=== PATIENT | male | born 1955 | race Two or more races ===

== ENCOUNTER 2020-07-25 16:12 | Emergency (ER) | payer SELFPAY ==
[2020-07-25 16:54] LABS: ABSOLUTE EOSINOPHILS # (AUTO) 0.5 10^3/uL (0.0-0.6); ABSOLUTE LYMPHOCYTES (AUTO) 1.5 10^3/uL (0.5-4.7); ABSOLUTE MONOCYTES (AUTO) 0.8 10^3/uL (0.1-1.4); ABSOLUTE NEUT (AUTO) 6.4 10^3/uL (1.7-8.2); BASOPHILS % (AUTO) 0.5 % (0-2); EOSINOPHILS % (AUTO) 5.1 % (0-6); HEMATOCRIT 33.3 % (37.9-51.0); HEMOGLOBIN 11.3 g/dL (13.5-17.0); LYMPHOCYTES % (AUTO) 16.3 % (13-45); MEAN CORPUSCULAR HEMOGLOBIN 32.5 pg (27.0-33.4); MEAN CORPUSCULAR VOLUME 96 fl (80-97); MONOCYTES % (AUTO) 8.5 % (3-13); PLATELET COUNT 372 10^3/uL (150-450); RED BLOOD COUNT 3.48 10^6/uL (4.35-5.55); RED CELL DISTRIBUTION WIDTH 14.3 % (11.5-14.0); SEGMENTED NEUTROPHILS % (AUTO) 69.6 % (42-78); TOTAL CELLS COUNTED % (AUTO) 100 %; WHITE BLOOD COUNT 9.1 10^3/uL (4.0-10.5)
[2020-07-25 17:18] LABS: ALBUMIN 4.5 g/dL (3.5-5.0); ALKALINE PHOSPHATASE 64 U/L (38-126); ANION GAP 15 (5-19); ASPARTATE AMINO TRANSFERASE 15 U/L (17-59); BILIRUBIN,DIRECT 0.6 mg/dL (0.0-0.4); BILIRUBIN,TOTAL 0.7 mg/dL (0.2-1.3); BLOOD UREA NITROGEN 38 mg/dL (7-20); CALCIUM 9.6 mg/dL (8.4-10.2); CARBON DIOXIDE 31 mmol/L (22-30); CHLORIDE 96 mmol/L (98-107); GLUCOSE 124 mg/dL (75-110); POTASSIUM 4.7 mmol/L (3.6-5.0); TOTAL PROTEIN 7.3 g/dL (6.3-8.2)
[2020-07-25 17:21] LABS: ACETAMINOPHEN < 10 ug/mL (10-30); ALCOHOL < 10 mg/dL (NONE DETECTED); SALICYLATE < 1.0 mg/dL (2.0-20.0)
[2020-07-25 18:36] LABS: URINE AMPHETAMINES SCREEN NEGATIVE; URINE BARBITURATES SCREEN NEGATIVE; URINE BENZODIAZEPINES SCREEN NEGATIVE; URINE COCAINE SCREEN NEGATIVE; URINE MARIJUANA (THC) SCREEN NEGATIVE; URINE METHADONE SCREEN NEGATIVE; URINE PHENCYCLIDINE SCREEN NEGATIVE
[2020-07-25] MEDS ORDERED: CLONIDINE HCL 0.1 MG TABLET PO ONE ×2 (18:53→18:58)
[2020-07-25] MEDS ORDERED: DIVALPROEX SODIUM 500 MG TAB.SR.24H PO ONE (18:53)
--- NOTE | 2020-07-25 19:19 | ER Document Report ---
ED Psych Disorder / Suicide <JONA LEE - Last Filed: 07/25/20 19:29> - General Mode of Arrival: Ambulatory Information source: Patient - HPI Patient complains to provider of: Suicidal ideation Onset: This afternoon Pain Level: Denies Suicide Risk Factors: Chronic illness, Depressed, Male Suicide Attempt Method: Stabbing/Cutting Associated symptoms: Depressed Similar symptoms previously: Yes Recently seen / treated by doctor: No <TRINH SMITH - Last Filed: 07/25/20 22:58> - General Chief Complaint: Suicidal Ideation Stated Complaint: SUICIDAL IDEATION Time Seen by Provider: 07/25/20 17:01 Primary Care Provider: [facility] [Outside] - Follow up as needed (To initiate services walk ins are Tuesday-Tuesday 8:00AM-12:00PM/Noon.) [facility] [Outside] - Follow up as needed [facility] [Outside] - Follow up as needed (To initiate services walk ins are Tuesday-Tuesday 8:00AM-4:30PM.) [facility] [Outside] - Follow up as needed Notes: Patient states that he has been feeling depressed for some time and ran out of his psychiatric medications a week ago. Patient states he recently moved to this area 3 weeks ago has not established with a mental health provider. Patient states that he has been having thoughts of wanting to harm himself and held a knife to his chest at home today. Patient states that he attempted to go to the [facility] voluntarily for help but they were unable to help him as he is a dialysis patient. Patient typically dialyzes on Tuesday and Tuesday and has not missed any sessions. The mental health facility did not feel that they could take care of him due to his needing dialysis tomorrow. Patient lives with family here in town and his fiance. (TRINH SMITH) - Related Data Allergies/Adverse Reactions: Penicillins Allergy (Verified 07/25/20 17:10) cillins Allergy (Uncoded 07/25/20 17:10) Past Medical History - General Information source: Patient - Social History Smoking Status: Current Every Day Smoker Chew tobacco use (# tins/day): No Frequency of alcohol use: None Drug Abuse: None Occupation: None Lives with: Family Family History: Reviewed & Not Pertinent - Past Medical History Cardiac Medical History: Reports: Hx Hypertension Endocrine Medical History: Reports: Hx Diabetes Mellitus Type 2 Renal/ Medical History: Reports: Hx End Stage Renal Disease - dialysis GI Medical History: Reports: Hx Hiatal Hernia Past Surgical History: Reports: Hx Abdominal Surgery, Hx Orthopedic Surgery, Hx Tonsillectomy, Hx Vascular Surgery - fistula <TRINH SMITH - Last Filed: 07/25/20 22:58> Review of Systems - Review of Systems Constitutional: No symptoms reported. denies: Fever EENT: No symptoms reported Cardiovascular: No symptoms reported Respiratory: No symptoms reported. denies: Cough, Short of breath Gastrointestinal: No symptoms reported. denies: Abdominal pain, Nausea, Vomiting Genitourinary: No symptoms reported Male Genitourinary: No symptoms reported Musculoskeletal: No symptoms reported Skin: No symptoms reported Hematologic/Lymphatic: No symptoms reported Neurological/Psychological: Depression, Suicidal ideation <TRINH SMITH - Last Filed: 07/25/20 22:58> Physical Exam <TRINH SMITH - Last Filed: 07/25/20 22:58> - Vital signs Vitals: Temp Pulse Resp BP Pulse Ox 98.6 F 82 16 146/80 H 95 07/25/20 16:49 07/25/20 16:49 07/25/20 16:49 07/25/20 16:49 07/25/20 16:49 - Notes Notes: PHYSICAL EXAMINATION: GENERAL: Well-appearing and in no acute distress. HEAD: Atraumatic, normocephalic. EYES: sclera anicteric, conjunctiva are normal. ENT: nares patent. Moist mucous membranes. NECK: Normal range of motion, supple without lymphadenopathy LUNGS: CTAB and equal. No wheezes rales or rhonchi. HEART: Regular rate and rhythm without murmurs ABDOMEN: Soft, nontender, normal bowel sounds, no guarding. No evidence of any trauma to the abdomen. EXTREMITIES: Normal range of motion, no pitting edema. No cyanosis. BACK: No CVA tenderness NEUROLOGICAL: Cranial nerves grossly intact. Normal speech. Normal gait. PSYCH: Normal mood, normal affect. SKIN: Warm, Dry, normal turgor, no rashes or lesions noted (TRINH SMITH) Course - Laboratory Result Diagrams: 07/25/20 16:32 07/25/20 16:32 <JONA LEE - Last Filed: 07/25/20 19:29> - Laboratory Result Diagrams: 07/25/20 16:32 07/25/20 16:32 - EKG Interpretation by Me EKG shows normal: Sinus rhythm [place]/QRS: RBBB, LAHB/LAFB When compared to previous EKG there are: Previous EKG unavailable <TRINH SMITH - Last Filed: 07/25/20 22:58> - Re-evaluation Re-evalutation: 07/25/20 19:43 Patient presents voluntarily requesting help for his depression symptoms as he has been off of his medications recently. Patient just recently relocated to this area and has not gotten established with a mental health provider. Patient is a dialysis patient and normally dialyzes on Tuesday and Tuesday and is scheduled for dialysis tomorrow morning. Patient appears medically clear for discharge at this time. Behavioral health team has evaluated patient and does not feel that he meets IVC criteria at this time. Patient will be following up with mobile crisis as well as [facility] and will be given a 2-week prescription of medications at this time. Patient is agreeable with this discharge plan of care. (TRINH SMITH) - Vital Signs Vital signs: Temp Pulse Resp BP Pulse Ox 98.7 F 87 16 145/76 H 93 07/25/20 19:57 07/25/20 19:57 07/25/20 19:57 07/25/20 19:57 07/25/20 19:57 - Laboratory Laboratory results interpreted by me: 07/25/20 07/25/20 16:32 16:32 RBC 3.48 L Hgb 11.3 L Hct 33.3 L RDW 14.3 H Chloride 96 L Carbon Dioxide 31 H BUN 38 H Creatinine 8.34 H Est GFR ( Amer) 8 L Est GFR (MDRD) Non-Af 7 L Glucose 124 H Direct Bilirubin 0.6 H AST 15 L Salicylates < 1.0 L Acetaminophen < 10 L 07/25/20 19:43 Labs- All tests 24 hr 07/25/20 07/25/20 07/25/20 16:32 16:32 16:32 WBC 9.1 RBC 3.48 L Hgb 11.3 L Hct 33.3 L MCV 96 MCH 32.5 MCHC 34.0 RDW 14.3 H Plt Count 372 Lymph % (Auto) 16.3 Ransom % (Auto) 8.5 Eos % (Auto) 5.1 Baso % (Auto) 0.5 Absolute Neuts (auto) 6.4 Absolute Lymphs (auto) 1.5 Absolute Monos (auto) 0.8 Absolute Eos (auto) 0.5 Absolute Basos (auto) 0.0 Seg Neutrophils % 69.6 Sodium 142.2 Potassium 4.7 Chloride 96 L Carbon Dioxide 31 H Anion Gap 15 BUN 38 H Creatinine 8.34 H Est GFR ( Amer) 8 L Est GFR (MDRD) Non-Af 7 L Glucose 124 H Calcium 9.6 Total Bilirubin 0.7 Direct Bilirubin 0.6 H Neonat Total Bilirubin Not Reportable Neonat Direct Bilirubin Not Reportable Neonat Indirect Bili Not Reportable AST 15 L ALT 9 Alkaline Phosphatase 64 Total Protein 7.3 Albumin 4.5 Salicylates < 1.0 L Urine Opiates Screen NEGATIVE Urine Methadone Screen NEGATIVE Acetaminophen < 10 L Ur Barbiturates Screen NEGATIVE Ur Phencyclidine Scrn NEGATIVE Ur Amphetamines Screen NEGATIVE U Benzodiazepines Scrn NEGATIVE Urine Cocaine Screen NEGATIVE U Marijuana (THC) Screen NEGATIVE Serum Alcohol < 10 (TRINH SMITH) - EKG Interpretation by Me Additional EKG results interpreted by me: 07/25/20 22:57 Sinus rhythm with a rate of 83, QTC 527, no prior EKG available for comparison, no acute ischemic changes (TRINH SMITH) Discharge <JONA LEE - Last Filed: 07/25/20 19:29> <TRINH SMITH - Last Filed: 07/25/20 22:58> - Discharge Clinical Impression: Suicidal ideation, Has run out of medications, History of bipolar disorder Depression Qualifiers: Depression Type: unspecified Qualified Code(s): F32.9 - Major depressive disorder, single episode, unspecified Condition: Stable Disposition: HOME, SELF-CARE Additional Instructions: You have been evaluated by both medical and behavioral health teams for suicidal ideation, increased depression, history of Bipolar, having been off medications the past couple weeks, and you wanting to get back on medications. You have been deemed appropriate for discharge. While in the emergency department you received the following services: Medical screening and assessment, nursing services, dietary services, pharmacological services, one-on-one counseling and/or psychotherapy, environmental services, and continuous observation by a patient food safety manager. Medication adjustments are as follows: Add Clonidine 0.1MG twice a day for blood pressure/calming effect/sleep Add Depakote 500MG twice a day for mood stabilization You are recommended to take the above medications as prescribed and not deter until you have seen an outpatient provider. Also be mindful medication will take longer to be therapeutic or effective given you are on dialysis. DEPRESSION: (often situational) Your evaluation reveals that you have mental depression. While symptoms may be vague, they often include disturbance of sleep, fatigue, loss of appetite, and general loss of interest in life. While depression may be a side effect of drugs, or a reaction to a major change in your life, many cases have no known cause. If depression is acute, and related to a major loss in your life, you can expect it to clear completely with time. If you have been depressed a long time, are prone to repeated bouts of depression or low mood, or have been thinking of suicide, get help. Depression can be treated with anti-depressant medication and counselling. Long-term depression will often take a few weeks to clear, even with appropriate medication. Follow-up care is important. SUICIDAL IDEATION: Suicidal ideation is a common medical term for thoughts about suicide, which may be as detailed as a formulated plan, without the suicidal act itself. Although most people who undergo suicidal ideation do not commit suicide, some go on to make suicide attempts. The range of suicidal ideation varies greatly from fleeting to detailed planning, role playing, and unsuccessful attempts. While thoughts about suicide are common, most people do not carry out serious actions to commit suicide. Based upon your evaluation and discussion with you, we do not believe you are currently at risk to act upon your thoughts of suicide. You have agreed to return to the Emergency Department, at any time, if you feel inclined to act upon your suicidal thoughts. FOLLOW-UP CARE: You are recommended to take the above medications as prescribed. You have been provided local outpatient mental health resources with walk in times for [facility] and [facility]. You have also been provided both local mobile crisis numbers. If you experience worsening or a significant change in your symptoms notify your physician immediately, utilize mobile crisis or return to the Emergency Department at any time for re-evaluation. Prescriptions: Clonidine HCl [Catapres 0.1 mg Tablet] 0.1 mg PO Q12 #30 tablet Divalproex Sodium [Depakote] 500 mg PO BID #30 tablet. Referrals: [facility] [Outside] - Follow up as needed [facility] [Outside] - Follow up as needed [facility] [Outside] - Follow up as needed (To initiate services walk ins are Tuesday-Tuesday 8:00AM-4:30PM.) [facility] [Outside] - Follow up as needed (To initiate services walk ins are Tuesday-Tuesday 8:00AM-12:00PM/Noon.)
[2020-07-25 19:58] VITALS: BP 145/76
--- NOTE | 2020-07-25 21:20 | EKG REPORT ---
SEVERITY:- ABNORMAL ECG - SINUS RHYTHM PROBABLE LEFT ATRIAL ABNORMALITY RBBB AND LAFB : Confirmed by: Gisel Stanley MD 25-Jul-2020 21:19:04
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
== END 2020-07-25 20:09 | disposition home or self-care (01) ==
LOC: ER 16:12
DX: R45.851 Suicidal ideations (principal); R31.9 Hematuria, unspecified; F31.9 Bipolar disorder, unspecified; F17.200 Nicotine dependence, unspecified, uncomplicated; E11.22 Type 2 diabetes mellitus with diabetic chronic kidney disease; I12.0 Hypertensive chronic kidney disease with stage 5 chronic kidney disease or end stage renal disease; N18.6 End stage renal disease; Z99.2 Dependence on renal dialysis; Z88.0 Allergy status to penicillin
CPT/HCPCS: 36415; 80053; 80307; 85025; 93005; 93010; 99284

== ENCOUNTER 2020-08-30 22:58 | Emergency (ER) | payer MEDICARE ==
--- NOTE | 2020-08-30 23:13 | ER Document Report ---
ED Medical Screen (RME) - General Chief Complaint: Shortness Of Breath Stated Complaint: HEADACHE Time Seen by Provider: 08/30/20 23:11 Primary Care Provider: MARY LOU BE PA-C [Primary Care Provider] - Follow up as needed Mode of Arrival: Wheelchair Information source: Patient Notes: 65-year-old male presented to ED for complaint of runny nose cough congestion sh ort of breath. He states the symptoms have been for about a week and a half. He states that he was told last week that he was positive for TB and then he was told he was negative and then told he had a cyst on his kidney. He states he did have a negative Covid test about 2 weeks ago. He does have a history of diabetes type 2 high blood pressure cholesterol and end-stage renal disease. He states he did have dialysis today. He does smoke 2 packs/day. Respirations regular nonlabored speaking in full sentences. He does have crackles bilaterally in the lower lungs. We will get blood urine chest x-ray and a repeat Covid test. I have greeted and performed a rapid initial assessment of this patient. A comprehensive ED assessment and evaluation of the patient, analysis of test results and completion of medical decision making process will be conducted by an additional ED providers. - Related Data Allergies/Adverse Reactions: Penicillins Allergy (Verified 07/25/20 17:10) cillins Allergy (Uncoded 07/25/20 17:10) Past Medical History - Social History Chew tobacco use (# tins/day): No Frequency of alcohol use: None Drug Abuse: None - Past Medical History Cardiac Medical History: Reports: Hx Hypertension Endocrine Medical History: Reports: Hx Diabetes Mellitus Type 2 Renal/ Medical History: Reports: Hx End Stage Renal Disease - dialysis GI Medical History: Reports: Hx Hiatal Hernia Past Surgical History: Reports: Hx Abdominal Surgery, Hx Orthopedic Surgery, Hx Tonsillectomy, Hx Vascular Surgery - fistula Physical Exam - Vital signs Vitals: Temp 98.6 F 08/30/20 23:04 Course - Vital Signs Vital signs: Temp Pulse Resp BP Pulse Ox 98.6 F 90 22 H 140/72 H 96 08/30/20 23:08 08/30/20 23:08 08/30/20 23:08 08/30/20 23:08 08/30/20 23:08 Doctor's Discharge - Discharge Referrals: MARY LOU BE PA-C [Primary Care Provider] - Follow up as needed
[2020-08-31] MEDS ORDERED: IPRATROPIUM/ALBUTEROL 0.5-2.5 MG/3 ML AMPUL NEB ONE (00:52)
[2020-08-31] MEDS ORDERED: ACETAMINOPHEN 325 MG TABLET PO ONE (00:52)
--- NOTE | 2020-08-31 01:02 | ER Document Report ---
ED General - General Chief Complaint: Shortness Of Breath Stated Complaint: HEADACHE Time Seen by Provider: 08/30/20 23:11 Primary Care Provider: MARY LOU BE PA-C [ALLIED HEALTH PROFESSIONAL] - Follow up as needed Mode of Arrival: Wheelchair - HPI Context: Is a 65-year-old male with a history of end-stage renal disease, on dialysis presenting to the emergency department complaining of shortness of breath, cough, runny nose and headache. Patient states the symptoms have been present for about a week and a half. Patient states that he has been seen by his doctor and has been already put on antibiotics to cover for respiratory infection. Patient states that he had a negative Covid test about 2 weeks ago. Patient dialyzes on Tuesday and Tuesday. Patient states he did go to dialysis today patient admits to smoking 2 packs of cigarettes a day. Patient denies fever, chills. Patient denies chest pain, loss of sense of smell, loss of sense of taste. Patient states dyspnea is exacerbated with exertion. Patient states he has had breathing treatments for the same symptoms in the past with improvement in symptoms. Associated symptoms: Other - See HPI Exacerbated by: Other - See HPI Relieved by: Other - See HPI Similar symptoms previously: Yes Recently seen / treated by doctor: Yes - Related Data Allergies/Adverse Reactions: Penicillins Allergy (Verified 07/25/20 17:10) cillins Allergy (Uncoded 07/25/20 17:10) Past Medical History - General Information source: Patient - Social History Smoking Status: Current Every Day Smoker Chew tobacco use (# tins/day): No Frequency of alcohol use: None Drug Abuse: None Family History: Reviewed & Not Pertinent Patient has suicidal ideation: No Patient has homicidal ideation: No - Past Medical History Cardiac Medical History: Reports: Hx Hypertension Endocrine Medical History: Reports: Hx Diabetes Mellitus Type 2 Renal/ Medical History: Reports: Hx End Stage Renal Disease - dialysis GI Medical History: Reports: Hx Hiatal Hernia Past Surgical History: Reports: Hx Abdominal Surgery, Hx Orthopedic Surgery, Hx Tonsillectomy, Hx Vascular Surgery - fistula Review of Systems - Review of Systems Constitutional: No symptoms reported EENT: Nose congestion, Nose discharge Cardiovascular: denies: Chest pain Respiratory: Cough, Short of breath Gastrointestinal: No symptoms reported Genitourinary: No symptoms reported Male Genitourinary: No symptoms reported Musculoskeletal: No symptoms reported Skin: No symptoms reported Hematologic/Lymphatic: No symptoms reported Neurological/Psychological: Headaches -: Yes All other systems reviewed and negative Physical Exam - Vital signs Vitals: Temp 98.6 F 08/30/20 23:04 - Notes Notes: CONSTITUTIONAL [Vital signs reviewed, Patient appears comfortable, Alert and oriented X 3, Normal stature.] HEAD [Atraumatic, Normocephalic.] EYES [Eyes are normal to inspection, No discharge from eyes, Extraocular muscles intact, Sclera are normal, Conjunctiva are normal.] ENT , Nose examination significant for clear rhinorrhea, Mouth normal to inspection.] NECK [Normal ROM, No jugular venous distention, No meningeal signs, no carotid bruit.] RESPIRATORY CHEST [Chest is nontender, Breath sounds normal, No respiratory distress.] CARDIOVASCULAR [RRR, No murmurs, Normal S1 S2, No rub, No gallop.] ABDOMEN [Abdomen is nontender, No pulsatile masses, No other masses, Bowel sounds normal, No distension, No peritoneal signs, No hernias.] BACK [There is no CVA Tenderness, There is no tenderness to palpation, Normal inspection.] UPPER EXTREMITY [Inspection normal, No cyanosis, No clubbing, No edema, 2+ radial pulses.] LOWER EXTREMITY [Inspection normal, No cyanosis, No clubbing, No edema, No calf tenderness, 2+ femoral pulses.] NEURO [No focal motor deficits, No focal sensory deficits, Speech normal.] SKIN [Skin is warm, Skin is dry, Skin is normal color.] PSYCHIATRIC [Normal affect. ] Course - Re-evaluation Re-evalutation: 08/31/20 02:03 Patient is laying in bed. Patient states he feels better after breathing treatments. Patient has had something to eat. Patient has no complaints at this time. Results of the ED MSE discussed with patient. Smoking cessation counseling was offered. Results of ED MSE discussed with patient. All questions were answered prior to discharge. Emergency signs and symptoms, reasons to return to the emergency department discussed with patient. PUI COVID-19 precautions discussed with patient. 08/31/20 02:04 - Vital Signs Vital signs: Temp Pulse Resp BP Pulse Ox 98.6 F 90 22 H 140/72 H 96 08/30/20 23:08 08/30/20 23:08 08/30/20 23:08 08/30/20 23:08 08/30/20 23:08 - Laboratory Result Diagrams: 08/31/20 00:18 08/31/20 00:18 Laboratory results interpreted by me: 08/31/20 08/31/20 00:18 00:18 RBC 2.82 L Hgb 9.1 L Hct 26.7 L RDW 15.2 H Chloride 94 L BUN 23 H Creatinine 6.73 H Est GFR ( Amer) 10 L Est GFR (MDRD) Non-Af 8 L Glucose 142 H Total Protein 6.0 L - Diagnostic Test Radiology reviewed: Reports reviewed Discharge - Discharge Clinical Impression: Bronchitis, Person under investigation for COVID-19 Condition: Stable Disposition: HOME, SELF-CARE Instructions: COVID-19 Guidance for Persons Under Investigation Additional Instructions: Return to the Emergency Department without delay if any worse. HOME CARE INSTRUCTIONS & INFORMATION: Thank you for choosing us for your medical needs. We hope you're satisfied with the care you received. After you leave, you must properly care for your problem and, at the same time, observe its progress. Any condition can change. Some illnesses can change rapidly over hours or days. If your condition worsens, return to the Emergency Department or see your physician promptly. ABOUT YOUR X-RAYS AND EKG'S: If you had an EKG or X-rays taken, they have been read by the Emergency Physician. The X-rays and EKG's will also be read by a Radiologist or Audit Intern within 24 hours. If discrepancies are noted, you will be notified by telephone. Please be certain the ED has a correct telephone number & address where you can be reached. Also, realize that some fractures or abnormalities do not show up on initial X-rays. If your symptoms continue, see your physician. ABOUT YOUR LABORATORY TEST: If you had laboratory tests, the results have been reviewed by the Emergency Physician. Some test results (for example cultures) may not be available for several days. You will be contacted if any test result shows you need additional treatment. Please be certain the ED has a correct telephone number and address where you can be reached. ABOUT YOUR MEDICATIONS: You will receive instructions on how to take your medicine on the prescription label you receive. Additional information may be provided by the Pharmacy. If you have questions afterwards, call the ED for clarification or further instructions. Some prescribed medications may cause drowsiness. Do not perform tasks such as driving a car or operating machinery without consulting your Pharmacist. If you feel you need a refill of pain medication, your condition will need re-evaluation. Please do not call for a refill of any medication. ABOUT YOUR SIGNATURE: Signature of this document acknowledges to followin. Understanding that you received emergency treatment and that you may be released before al medical problems are known or treated. Please be certain the ED has a correct phone number & address where you can be reached. 2. Acknowledgement that you will arrange for follow-up care as recommended. 3. Authorization for the Emergency Physician to provide information to your follow-up Physician in order to maximize your care. AT ANY TIME, IF YOUR SYMPTOMS CHANGE SIGNIFICANTLY OR WORSEN OR YOU DEVELOP NEW SYMPTOMS, RETURN TO THE EMERGENCY DEPARTMENT IMMEDIATELY FOR RE-EVALUATION. OUR GOAL IS TO PROVIDE EXCELLENT MEDICAL CARE! WE HOPE THAT WE HAVE MET YOUR EXPECTATIONS DURING YOUR EMERGENCY DEPARTMENT VISIT AND THAT YOU FEEL YOU HAVE RECEIVED EXCELLENT CARE! Bronchitis You have acute bronchitis. This disease is an infection or inflammation of the air passageways in your lungs. Symptoms usually include cough, low grade fever, shortness of breath, and wheezing. The cough usually persists for a couple of weeks. Most cases of bronchitis get better without antibiotics. We prescribe antibiotics when we believe bacteria are damaging your airways, or if there's high risk the bronchitis will worsen into pneumonia. Increase your fluid intake. A cool mist humidifier may make your lungs more comfortable. An expectorant (cough medicine that loosens phlegm) can help. If you smoke, STOP!!! Recovery from bronchitis can be somewhat slow, but you should see improvement within a day or two. Repeated episodes of bronchitis may result in lung damage -- for example, chronic bronchitis, recurrent pneumonias, or emphysema. Call the doctor if you develop increasing fever, shortness of breath, chest pain, bloody sputum, or otherwise worsen. If you have not improved at all after several days, contact the physician. Prescriptions: Ipratropium/Albuterol Sulfate [Combivent Respimat 4 gm Mdi] 1 puff IH Q4HP PRN #1 [email or web address] PRN Reason: prn shortness of breath Referrals: MARY LOU BE PA-C [ALLIED HEALTH PROFESSIONAL] - Follow up as needed
[2020-08-31 01:15] LABS: ABSOLUTE BASOPHILS # (AUTO) 0.1 10^3/uL (0.0-0.2); ABSOLUTE EOSINOPHILS # (AUTO) 0.4 10^3/uL (0.0-0.6); ABSOLUTE LYMPHOCYTES (AUTO) 0.8 10^3/uL (0.5-4.7); ABSOLUTE MONOCYTES (AUTO) 0.7 10^3/uL (0.1-1.4); ABSOLUTE NEUT (AUTO) 4.3 10^3/uL (1.7-8.2); EOSINOPHILS % (AUTO) 5.9 % (0-6); HEMATOCRIT 26.7 % (37.9-51.0); HEMOGLOBIN 9.1 g/dL (13.5-17.0); MEAN CORPUSCULAR HEMOGLOBIN 32.3 pg (27.0-33.4); MEAN CORPUSCULAR HGB CONC 34.1 g/dL (32.0-36.0); MEAN CORPUSCULAR VOLUME 95 fl (80-97); PLATELET COUNT 246 10^3/uL (150-450); RED BLOOD COUNT 2.82 10^6/uL (4.35-5.55); RED CELL DISTRIBUTION WIDTH 15.2 % (11.5-14.0); SEGMENTED NEUTROPHILS % (AUTO) 69.1 % (42-78); TOTAL CELLS COUNTED % (AUTO) 100 %; WHITE BLOOD COUNT 6.2 10^3/uL (4.0-10.5)
--- NOTE | 2020-08-31 01:28 | RADIOLOGY REPORT (SQ) ---
EXAM DESCRIPTION: XR CHEST 1 VIEW COMPLETED DATE/TME: 08/30/2020 23:13 CLINICAL HISTORY: 65 years, Male, short of breath cough congested COMPARISON: None. NUMBER OF VIEWS: 1 TECHNIQUE: Portable AP upright view of the chest was obtained at 12:21 AM. LIMITATIONS: None. FINDINGS: Heart size is within normal limits. Thoracic aorta is tortuous and partially calcified. There is mild basilar linear atelectasis or scarring. There is no airspace consolidation. Bilateral subclavian stent artifact are noted. There is no evidence of pleural effusion or pneumothorax. IMPRESSION: No acute abnormality as above. copyright 2010 [employer]- All Rights Reserved
[2020-08-31 01:35] LABS: ALBUMIN 3.9 g/dL (3.5-5.0); ALKALINE PHOSPHATASE 52 U/L (38-126); ANION GAP 17 (5-19); ASPARTATE AMINO TRANSFERASE 18 U/L (17-59); BILIRUBIN,DIRECT 0.3 mg/dL (0.0-0.4); BILIRUBIN,TOTAL 0.8 mg/dL (0.2-1.3); BLOOD UREA NITROGEN 23 mg/dL (7-20); CALCIUM 8.7 mg/dL (8.4-10.2); CARBON DIOXIDE 30 mmol/L (22-30); CHLORIDE 94 mmol/L (98-107); GLUCOSE 142 mg/dL (75-110); POTASSIUM 4.1 mmol/L (3.6-5.0)
[2020-08-31 02:08] VITALS: BP 121/69
== END 2020-08-31 02:27 | disposition home or self-care (01) ==
LOC: ER 22:58
DX: J40 Bronchitis, not specified as acute or chronic (principal); I12.0 Hypertensive chronic kidney disease with stage 5 chronic kidney disease or end stage renal disease; E11.22 Type 2 diabetes mellitus with diabetic chronic kidney disease; N18.6 End stage renal disease; Z99.2 Dependence on renal dialysis; R51.9 Headache, unspecified; R05 Cough; R06.02 Shortness of breath; R09.81 Nasal congestion; J34.89 Other specified disorders of nose and nasal sinuses; Z20.828 Contact with and (suspected) exposure to other viral communicable diseases; F17.210 Nicotine dependence, cigarettes, uncomplicated; Z88.0 Allergy status to penicillin
CPT/HCPCS: 94640; 99284; 36415; 85025; 80053; 71045; U0003; A9270; C9803; 87635

== ENCOUNTER 2020-09-01 11:41 | Emergency (ER) | payer MEDICARE ==
[2020-09-01 13:01] LABS: ABSOLUTE BASOPHILS # (AUTO) 0.1 10^3/uL (0.0-0.2); ABSOLUTE EOSINOPHILS # (AUTO) 0.3 10^3/uL (0.0-0.6); ABSOLUTE LYMPHOCYTES (AUTO) 0.7 10^3/uL (0.5-4.7); ABSOLUTE MONOCYTES (AUTO) 0.5 10^3/uL (0.1-1.4); ABSOLUTE NEUT (AUTO) 4.7 10^3/uL (1.7-8.2); BASOPHILS % (AUTO) 0.9 % (0-2); EOSINOPHILS % (AUTO) 4.2 % (0-6); HEMATOCRIT 25.6 % (37.9-51.0); HEMOGLOBIN 8.5 g/dL (13.5-17.0); LYMPHOCYTES % (AUTO) 11.5 % (13-45); MEAN CORPUSCULAR HEMOGLOBIN 31.6 pg (27.0-33.4); MEAN CORPUSCULAR HGB CONC 33.3 g/dL (32.0-36.0); MEAN CORPUSCULAR VOLUME 95 fl (80-97); MONOCYTES % (AUTO) 8.5 % (3-13); PLATELET COUNT 237 10^3/uL (150-450); RED CELL DISTRIBUTION WIDTH 15.3 % (11.5-14.0); SEGMENTED NEUTROPHILS % (AUTO) 74.9 % (42-78); TOTAL CELLS COUNTED % (AUTO) 100 %; WHITE BLOOD COUNT 6.2 10^3/uL (4.0-10.5)
--- NOTE | 2020-09-01 13:07 | RADIOLOGY REPORT (SQ) ---
EXAM DESCRIPTION: CHEST SINGLE VIEW IMAGES COMPLETED DATE/TIME: 09/01/2020 12:46 pm REASON FOR STUDY: SHORTNESS OF BREATH COMPARISON: 08/31/2020 EXAM PARAMETERS: NUMBER OF VIEWS: One view. TECHNIQUE: Single frontal radiographic view of the chest acquired. RADIATION DOSE: NA LIMITATIONS: None. FINDINGS: LUNGS AND PLEURA: Perihilar and basilar interstitial and alveolar opacities with associate d Gege B-lines. No large effusion. No pneumothorax. MEDIASTINUM AND HILAR STRUCTURES: No masses. Contour normal. HEART AND VASCULAR STRUCTURES: Enlarged, stable. Tortuous atherosclerotic thoracic aorta. BONES: No acute findings. HARDWARE: Vascular stents overlie bilateral subclavian and axillary vessels. OTHER: No other significant finding. IMPRESSION: Findings suggestive of volume overload with perihilar and basilar opacities, likely pulm onary edema. Infection is not excluded. TECHNICAL DOCUMENTATION: JOB ID: [id number] 2010 [employer]- All Rights Reserved Reading location - IP/workstation name: [email or web address]
[2020-09-01 13:16] LABS: ALBUMIN 3.8 g/dL (3.5-5.0); ALKALINE PHOSPHATASE 59 U/L (38-126); ANION GAP 12 (5-19); ASPARTATE AMINO TRANSFERASE 21 U/L (17-59); BILIRUBIN,DIRECT 0.5 mg/dL (0.0-0.4); BILIRUBIN,TOTAL 0.8 mg/dL (0.2-1.3); BLOOD UREA NITROGEN 32 mg/dL (7-20); CALCIUM 8.5 mg/dL (8.4-10.2); CARBON DIOXIDE 29 mmol/L (22-30); CHLORIDE 101 mmol/L (98-107); CREATINE KINASE 111 U/L (55-170); GLUCOSE 95 mg/dL (75-110); POTASSIUM 4.5 mmol/L (3.6-5.0); TOTAL PROTEIN 6.4 g/dL (6.3-8.2)
[2020-09-01 13:28] LABS: CREATINE KINASE MB 1.93 ng/mL (<4.55)
[2020-09-01 13:31] LABS: TROPONIN I 0.109 ng/mL
--- NOTE | 2020-09-01 15:18 | RADIOLOGY REPORT (SQ) ---
EXAM DESCRIPTION: CT CHEST WITHOUT IMAGES COMPLETED DATE/TIME: 09/01/2020 2:56 pm REASON FOR STUDY: dyspnea COMPARISON: None. TECHNIQUE: CT scan performed of the chest without intravenous contrast. Images reviewed with lung, soft tissue and bone windows. Reconstructed coronal and sagittal MPR images reviewed. All images st ored on PACS. All CT scanners at this facility use dose modulation, iterative reconstruction, and/or weight based d osing when appropriate to reduce radiation dose to as low as reasonably achievable (ALARA). [facility]: Dose Right [facility]: CareDose [facility]: Dose Right [facility]: Teradose 4D [facility]: [employer] RADIATION DOSE: mGy. LIMITATIONS: No technical limitations. FINDINGS: LUNGS AND PLEURA: There is a small area of ground-glass infiltrate in the right upper lobe laterally. Small right pleural effusion. HILAR AND MEDIASTINAL STRUCTURES: Mild mediastinal adenopathy. The largest node is peritracheal and measures 14.5 mm in short axis. HEART AND VASCULAR STRUCTURES: No aneurysm. No pericardial effusion. UPPER ABDOMEN: No significant findings. Limited exam. THYROID AND OTHER SOFT TISSUES: No masses. No adenopathy. BONES: No significant finding. HARDWARE: None in the chest. OTHER: No other significant findings. IMPRESSION: Limited airspace disease in the right upper lobe laterally, pneumonia likely. TECHNICAL DOCUMENTATION: JOB ID: [id number] Quality ID # [id number]: Final reports with documentation of one or more dose reduction techniques (e.g., Au tomated exposure control, adjustment of the mA and/or kV according to patient size, use of iterative reconstruction technique) 2010 [employer]- All Rights Reserved Reading location - IP/workstation name: [email or web address]
--- NOTE | 2020-09-01 17:09 | ER Document Report ---
ED General - General Chief Complaint: Shortness Of Breath Stated Complaint: SHORTNESS OF BREATH Time Seen by Provider: 09/01/20 12:42 Primary Care Provider: FANNY MAXWELL FNP-C [Primary Care Provider] - Follow up as needed Mode of Arrival: Medic Information source: Patient - HPI Notes: Patient arrives complaining of shortness of breath this been going on for proxy 1 week. He states that he was seen here last week and diagnosed with bronchitis but was not given any type of medications. He states today while he was at dialysis he did approximately 30 minutes of his dialysis run when he became significantly short of breath. Patient states he has had cough and congestion. He states that shortness of breath is worse with exertion and better with rest. Is mild to moderate in intensity. It is relatively constant. He has had some subjective fever and chills. No vomiting or diarrhea. He states when he lays flat he also becomes significantly short of breath and is having a hard time sleeping. - Related Data Allergies/Adverse Reactions: Penicillins Allergy (Verified 07/25/20 17:10) cillins Allergy (Uncoded 07/25/20 17:10) Past Medical History - General Information source: Patient - Social History Smoking Status: Former Smoker Frequency of alcohol use: None Drug Abuse: None Family History: Reviewed & Not Pertinent Patient has homicidal ideation: No - Past Medical History Cardiac Medical History: Reports: Hx Hypertension Endocrine Medical History: Reports: Hx Diabetes Mellitus Type 2 Renal/ Medical History: Reports: Hx End Stage Renal Disease - dialysis GI Medical History: Reports: Hx Hiatal Hernia Past Surgical History: Reports: Hx Abdominal Surgery, Hx Orthopedic Surgery, Hx Tonsillectomy, Hx Vascular Surgery - fistula Review of Systems - Review of Systems Constitutional: Chills, Malaise Cardiovascular: denies: Chest pain, Palpitations Respiratory: Cough, Short of breath -: Yes All other systems reviewed and negative Physical Exam - Vital signs Vitals: Resp Pulse Ox 19 94 09/01/20 11:53 09/01/20 11:53 Interpretation: Hypertensive - General General appearance: Appears well, Alert - HEENT Head: Normocephalic, Atraumatic Eyes: Normal Pupils: PERRL - Respiratory Respiratory status: No respiratory distress Chest status: Nontender Breath sounds: Decreased air movement, Rhonchi Chest palpation: Normal - Cardiovascular Rhythm: Regular Heart sounds: Normal auscultation Murmur: No - Abdominal Inspection: Normal Distension: No distension Bowel sounds: Normal Tenderness: Nontender Organomegaly: No organomegaly - Back Back: Normal, Nontender - Extremities General upper extremity: Normal inspection, Nontender, Normal color, Normal ROM, Normal temperature General lower extremity: Normal inspection, Nontender, Normal color, Normal ROM, Normal temperature, Normal weight bearing. No: Lovely's sign - Neurological Neuro grossly intact: Yes Cognition: Normal Orientation: AAOx4 [place] Coma Scale Eye Opening: Spontaneous [place] Coma Scale Verbal: Oriented [place] Coma Scale Motor: Obeys Commands Dino Coma Scale Total: 15 Speech: Normal Motor strength normal: LUE, RUE, LLE, RLE Sensory: Normal - Psychological Associated symptoms: Normal affect, Normal mood - Skin Skin Temperature: Warm Skin Moisture: Dry Skin Color: Normal Course - Re-evaluation Re-evalutation: 09/01/20 17:09 Patient arrives complaining of shortness of breath during dialysis. I do not see any significant signs of fluid overload. Imaging of the chest shows some questionable infiltrates therefore patient be treated with an antibiotic. I did call and discussed the case with the patient's emergency department rn who is in agreement with the disposition. Patient has dialysis arranged for 11:00 tomorrow. - Vital Signs Vital signs: Temp Pulse Resp BP Pulse Ox 14 154/74 H 96 09/01/20 15:00 09/01/20 14:00 09/01/20 15:00 - Laboratory Result Diagrams: 09/01/20 12:41 09/01/20 12:41 Laboratory results interpreted by me: 09/01/20 09/01/20 12:41 12:41 RBC 2.70 L Hgb 8.5 L Hct 25.6 L RDW 15.3 H Lymph % (Auto) 11.5 L BUN 32 H Creatinine 6.80 H Est GFR ( Amer) 10 L Est GFR (MDRD) Non-Af 8 L Direct Bilirubin 0.5 H - Diagnostic Test Radiology reviewed: Image reviewed, Reports reviewed - EKG Interpretation by [place] EKG shows normal: Sinus rhythm Rate: Normal - 80 Rhythm: NSR [place]/QRS: RBBB Discharge - Discharge Clinical Impression: Pneumonia Qualifiers: Pneumonia type: due to unspecified organism Laterality: right Lung location: upper lobe of lung Qualified Code(s): J18.9 - Pneumonia, unspecified organism Condition: Stable Disposition: HOME, SELF-CARE Additional Instructions: Please go to dialysis tomorrow at 11:00 at [facility] Prescriptions: Levofloxacin [Levaquin 500 mg Tablet] 500 mg PO Q2DAYS 10 Days #5 tablet Referrals: FANNY MAXWELL FNP-C [Primary Care Provider] - Follow up as needed
[2020-09-01] MEDS ORDERED: LEVOFLOXACIN 750 MG TABLET PO ONE (17:17)
[2020-09-01 17:37] VITALS: BP 153/85
== END 2020-09-01 17:39 | disposition home or self-care (01) ==
LOC: ER 11:41
DX: J18.9 Pneumonia, unspecified organism (principal); I12.0 Hypertensive chronic kidney disease with stage 5 chronic kidney disease or end stage renal disease; E11.22 Type 2 diabetes mellitus with diabetic chronic kidney disease; N18.6 End stage renal disease; Z99.2 Dependence on renal dialysis; I45.10 Unspecified right bundle-branch block; Z87.891 Personal history of nicotine dependence; Z88.0 Allergy status to penicillin
CPT/HCPCS: 99285; 36415; 82553; 82550; 85025; 80053; 84484; 71045; 71250; A9270

== ENCOUNTER 2020-09-02 05:23 | Emergency (ER) | payer MEDICARE ==
[2020-09-02] MEDS ORDERED: LEVOFLOXACIN 750 MG TABLET PO ONE (06:58)
--- NOTE | 2020-09-02 07:40 | RADIOLOGY REPORT (SQ) ---
EXAM DESCRIPTION: XR CHEST 1 VIEW COMPLETED DATE/TME: 09/02/2020 07:01 CLINICAL HISTORY: 65 years, Male, dyspnea COMPARISON: 09/01/2020 NUMBER OF VIEWS: One TECHNIQUE: AP view of the chest LIMITATIONS: None. FINDINGS: There are mildly worsening right basilar interstitial opacities. Heart is mildly enlarged. No pneumothorax or pleural effusion. Bilateral subclavian stents are again noted. IMPRESSION: Mild worsening right basilar interstitial opacities, which may represent atelectasis or pneumonia. copyright 2010 [employer]- All Rights Reserved
[2020-09-02 08:44] LABS: ABSOLUTE BASOPHILS # (AUTO) 0.1 10^3/uL (0.0-0.2); ABSOLUTE EOSINOPHILS # (AUTO) 0.4 10^3/uL (0.0-0.6); ABSOLUTE LYMPHOCYTES (AUTO) 0.7 10^3/uL (0.5-4.7); ABSOLUTE MONOCYTES (AUTO) 0.8 10^3/uL (0.1-1.4); ABSOLUTE NEUT (AUTO) 6.2 10^3/uL (1.7-8.2); EOSINOPHILS % (AUTO) 4.4 % (0-6); HEMATOCRIT 26.3 % (37.9-51.0); HEMOGLOBIN 8.8 g/dL (13.5-17.0); MEAN CORPUSCULAR HEMOGLOBIN 31.7 pg (27.0-33.4); MEAN CORPUSCULAR HGB CONC 33.4 g/dL (32.0-36.0); MEAN CORPUSCULAR VOLUME 95 fl (80-97); MONOCYTES % (AUTO) 9.7 % (3-13); PLATELET COUNT 256 10^3/uL (150-450); RED BLOOD COUNT 2.77 10^6/uL (4.35-5.55); RED CELL DISTRIBUTION WIDTH 14.9 % (11.5-14.0); SEGMENTED NEUTROPHILS % (AUTO) 75.9 % (42-78); TOTAL CELLS COUNTED % (AUTO) 100 %; WHITE BLOOD COUNT 8.1 10^3/uL (4.0-10.5)
[2020-09-02 08:50] LABS: ALBUMIN 3.7 g/dL (3.5-5.0); ALKALINE PHOSPHATASE 65 U/L (38-126); ANION GAP 14 (5-19); ASPARTATE AMINO TRANSFERASE 24 U/L (17-59); BILIRUBIN,DIRECT 0.7 mg/dL (0.0-0.4); BILIRUBIN,TOTAL 0.9 mg/dL (0.2-1.3); BLOOD UREA NITROGEN 41 mg/dL (7-20); CALCIUM 8.8 mg/dL (8.4-10.2); CARBON DIOXIDE 26 mmol/L (22-30); CHLORIDE 101 mmol/L (98-107); GLUCOSE 103 mg/dL (75-110); TOTAL PROTEIN 6.1 g/dL (6.3-8.2)
[2020-09-02] MEDS ORDERED: FUROSEMIDE INJ/PF 20 MG/2 ML SDV IM ONE (08:50)
[2020-09-02 08:54] LABS: ARTERIAL BLOOD BASE EXCESS 2.8 mmol/L; ARTERIAL BLOOD H2CO3 1.25 mmol/L (1.05-1.35); ARTERIAL BLOOD HCO3 27.3 mmol/L (20-24); ARTERIAL BLOOD O2 SATURATION 97.4 % (94-98); ARTERIAL BLOOD PCO2 41.4 mmHg (35-45); ARTERIAL BLOOD PH 7.44 (7.35-7.45); ARTERIAL BLOOD TOTAL CO2 28.6 mmol/L (23-27)
[2020-09-02 09:40] LABS: ARTERIAL BLOOD FIO2 2L
[2020-09-02 10:08] VITALS: BP 139/83
--- NOTE | 2020-09-02 10:09 | ER Document Report ---
ED General - General Chief Complaint: Shortness Of Breath Stated Complaint: SHORTNESS OF BREATH Time Seen by Provider: 09/02/20 06:15 Primary Care Provider: FANNY MAXWELL FNP-C [Primary Care Provider] - Follow up as needed - HPI Notes: Chief complaint: Shortness of breath coughing History of present illness: 65-year-old male with end-stage renal disease on hemodialysis seen here yesterday by with cough and mild shortness of breath with normal oxygenation stable vital signs diagnosed with a possible mild pneumonia. He was sent out on Jordy but has not filled the prescription. He is due for dialysis this morning at 11 AM. He comes back in still complaining of shortness of breath. He is a non-smoker. No sputum production. He has been tested for Covid 5 times previously and each of the tests have been normal. He has had no known exposure to Covid. - Related Data Allergies/Adverse Reactions: Penicillins Allergy (Verified 07/25/20 17:10) cillins Allergy (Uncoded 07/25/20 17:10) Past Medical History - General Information source: Patient, [facility] Records - Social History Smoking Status: Former Smoker Family History: Reviewed & Not Pertinent - Past Medical History Cardiac Medical History: Reports: Hx Hypertension Endocrine Medical History: Reports: Hx Diabetes Mellitus Type 2 Renal/ Medical History: Reports: Hx End Stage Renal Disease - dialysis GI Medical History: Reports: Hx Hiatal Hernia Past Surgical History: Reports: Hx Abdominal Surgery, Hx Orthopedic Surgery, Hx Tonsillectomy, Hx Vascular Surgery - fistula Review of Systems - Review of Systems Notes: Constitutional: Negative for fever. HENT: Negative for sore throat. Eyes: Negative for visual changes. Cardiovascular: Negative for chest pain. Respiratory: As per HPI. Gastrointestinal: Negative for abdominal pain, vomiting or diarrhea. Genitourinary: Negative for dysuria. Musculoskeletal: Negative for back pain. Skin: Negative for rash. Neurological: Negative for headaches, weakness or numbness. 10 point ROS negative except as marked above and in HPI. Physical Exam - Vital signs Vitals: Resp BP Pulse Ox 22 H 169/70 H 96 09/02/20 05:30 09/02/20 05:30 09/02/20 05:30 - Notes Notes: GENERAL: Male patient of approximately stated age appearing in no acute dist ress. SKIN: Good turgor no rashes. HEAD: Normocephalic atraumatic. EYES: PERRLA. EOMI. Conjunctivae and sclerae clear. EARS: CANALS AND TMS CLEAR. NOSE: CLEAR. MOUTH: Moist mucosa. Good dentition. No stridor or edema. No drooling. NECK: Supple. No masses or thyromegaly. No adenopathy. Carotids 2+ without bruits. 2+ JVD at 45 degrees elevation. BACK: Symmetrical without tenderness. CHEST: Respirations unlabored. Patient has some diminished breath sounds and rales at both bases. HEART: Regular rhythm. No murmur gallop or rub. ABDOMEN: Soft nontender without masses, organomegaly or rebound. Bowel sounds normally active. No bruits. GENITALIA: Deferred. EXTREMITIES: 1+ bilateral pretibial edema. No calf tenderness. Cap refill less than 1.5 seconds. Dorsalis pedis and posterior tibial pulses 3+ and symmetrical. NEUROLOGICAL: GCS 15. Alert and oriented x3. Normal gait. Fluent speech. Cranial nerves II through XII intact. Sensorimotor and cerebellar normal. Normal tone. PSYCHIATRIC: Appropriate affect. Course - Re-evaluation Re-evalutation: 09/02/20 10:07 Patient replaced this man on 2 L of nasal O2 for comfort. He still makes urine. I gave him 40 mg of IM Lasix. His x-ray was repeated and shows radiologist is reading as pneumonia although when I look at the film I think this is more likely vascular congestion. He has a very high BNP. Blood gas satisfactory with no CO2 retention. He this man a dose of oral Levaquin. He has a dialysis slot for 11 AM this morning and I think he is stable to be discharged to go to dialysis. Findings, clinical impression and plan of treatment have been discussed with patient/family. Understanding of current findings and recommendations has been acknowledged by them and there is agreement regarding disposition and follow-up. 09/02/20 10:09 - Vital Signs Vital signs: Temp Pulse Resp BP Pulse Ox 98.6 F 20 135/84 H 98 09/02/20 05:32 09/02/20 06:01 09/02/20 06:01 09/02/20 06:01 - Laboratory Result Diagrams: 09/02/20 08:04 09/02/20 08:04 Laboratory results interpreted by me: 09/02/20 09/02/20 09/02/20 07:39 08:04 08:04 RBC 2.77 L Hgb 8.8 L Hct 26.3 L RDW 14.9 H Lymph % (Auto) 9.0 L ABG HCO3 ABG Total CO2 BUN 41 H Creatinine 8.35 H Est GFR ( Amer) 8 L Est GFR (MDRD) Non-Af 7 L Direct Bilirubin 0.7 H NT-Pro-B Natriuret Pep 92269 H Total Protein 6.1 L 09/02/20 08:30 RBC Hgb Hct RDW Lymph % (Auto) ABG HCO3 27.3 H ABG Total CO2 28.6 H BUN Creatinine Est GFR ( Amer) Est GFR (MDRD) Non-Af Direct Bilirubin NT-Pro-B Natriuret Pep Total Protein Discharge - Discharge Clinical Impression: Fluid overload, End stage renal disease Condition: Stable Disposition: HOME, SELF-CARE Additional Instructions: Take prescribed medication as previously instructed. Go to dialysis now. Return here as needed for new or worsening symptoms: Increasing shortness of breath Pain that is worsening or unimproved Uncontrolled vomiting High fever or shaking chills Overall worsening Referrals: FANNY MAXWELL FNP-C [Primary Care Provider] - Follow up as needed
== END 2020-09-02 10:38 | disposition home or self-care (01) ==
LOC: ER 05:23
DX: I12.0 Hypertensive chronic kidney disease with stage 5 chronic kidney disease or end stage renal disease (principal); E11.22 Type 2 diabetes mellitus with diabetic chronic kidney disease; N18.6 End stage renal disease; Z99.2 Dependence on renal dialysis; Z87.891 Personal history of nicotine dependence; Z88.0 Allergy status to penicillin
CPT/HCPCS: 99284; 96372; 36415; 82803; 85025; 80053; 84484; 83880; 71045; J1940; A9270

== ENCOUNTER 2020-09-02 11:17 | Emergency (ER) | payer MEDICARE ==
--- NOTE | 2020-09-02 16:56 | ER Document Report ---
ED General - General Chief Complaint: Shortness Of Breath Stated Complaint: SHORTNESS OF BREATH Time Seen by Provider: 09/02/20 11:36 Primary Care Provider: FANNY MAXWELL FNP-C [Primary Care Provider] - Follow up as needed Mode of Arrival: Ambulatory Information source: Patient - HPI Notes: Patient was sent back from the [facility] dialysis [place]. They states that they are concerned the patient has not been adequately assessed for active tuberculosis and will not dialyze the patient until this is done. They state they need 3 - acid-fast test before they will allow the patient to dialyze there. I did confirm that the patient has had 1 - acid-fast last week at [facility]. He has had no further testing though had has n ot followed up with the health department. He states he was not informed that he was supposed to follow-up with the health department. He denies any symptoms of TB such as night sweats chills weight loss etc. He does not know of anybody who has TB that he might have been exposed to. Patient's main complaint currently is shortness of breath. - Related Data Allergies/Adverse Reactions: Penicillins Allergy (Verified 09/02/20 12:23) Past Medical History - General Information source: Patient - Social History Smoking Status: Former Smoker Frequency of alcohol use: None Drug Abuse: None Family History: Reviewed & Not Pertinent - Past Medical History Cardiac Medical History: Reports: Hx Hypertension Endocrine Medical History: Reports: Hx Diabetes Mellitus Type 2 Renal/ Medical History: Reports: Hx End Stage Renal Disease - dialysis GI Medical History: Reports: Hx Hiatal Hernia Past Surgical History: Reports: Hx Abdominal Surgery, Hx Orthopedic Surgery, Hx Tonsillectomy, Hx Vascular Surgery - fistula Review of Systems - Review of Systems Constitutional: Malaise, Weakness Cardiovascular: denies: Chest pain, Palpitations Respiratory: Cough, Short of breath -: Yes All other systems reviewed and negative Physical Exam - Vital signs Vitals: Resp BP Pulse Ox 19 147/91 H 98 09/02/20 11:20 09/02/20 11:20 09/02/20 11:20 Interpretation: Normal - General General appearance: Appears well, Alert - HEENT Head: Normocephalic, Atraumatic Eyes: Normal Pupils: PERRL - Respiratory Respiratory status: No respiratory distress Chest status: Nontender Breath sounds: Decreased air movement, Rales, Rhonchi Chest palpation: Normal - Cardiovascular Rhythm: Regular Heart sounds: Normal auscultation Murmur: No - Abdominal Inspection: Normal Distension: No distension Bowel sounds: Normal Tenderness: Nontender Organomegaly: No organomegaly - Back Back: Normal, Nontender - Extremities General upper extremity: Normal inspection, Nontender, Normal color, Normal ROM, Normal temperature General lower extremity: Normal inspection, Nontender, Normal color, Normal ROM, Normal temperature, Normal weight bearing. No: Lovely's sign - Neurological Neuro grossly intact: Yes Cognition: Normal Orientation: AAOx4 Ailey Coma Scale Eye Opening: Spontaneous Dino Coma Scale Verbal: Oriented Dino Coma Scale Motor: Obeys Commands Dino Coma Scale Total: 15 Speech: Normal Motor strength normal: LUE, RUE, LLE, RLE Sensory: Normal - Psychological Associated symptoms: Normal affect, Normal mood - Skin Skin Temperature: Warm Skin Moisture: Dry Skin Color: Normal Course - Re-evaluation Re-evalutation: 09/02/20 16:50 Patient was just discharged before arriving here for the second time today. Therefore I did not repeat laboratory values or imaging studies. I have made phone calls to every hospital in the region and at this time there are no available beds for the patient to be dialyzed. The outpatient surgery rn here, Dr. House, states that there are no dialysis beds available here either. Patient can be dialyzed here tomorrow. If a bed can be arranged for the patient to be transferred sooner at an outside facility patient will be transferred. - Vital Signs Vital signs: Temp Pulse Resp BP Pulse Ox 98.1 F 19 146/90 H 99 09/02/20 11:42 09/02/20 15:00 09/02/20 16:47 09/02/20 13:01 Discharge - Discharge Clinical Impression: CRF (chronic renal failure) Qualifiers: Chronic kidney disease stage: stage 5 Qualified Code(s): N18.5 - Chronic kidney disease, stage 5 Pulmonary edema Qualifiers: Chronicity: acute Qualified Code(s): J81.0 - Acute pulmonary edema Condition: Serious Disposition: [facility] Referrals: FANNY MAXWELL FNP-C [Primary Care Provider] - Follow up as needed
[2020-09-02 17:06] VITALS: BP 146/90
== END 2020-09-02 18:19 | disposition short-term general hospital (02) ==
LOC: ER 11:17
DX: J81.0 Acute pulmonary edema (principal); E11.22 Type 2 diabetes mellitus with diabetic chronic kidney disease; I12.0 Hypertensive chronic kidney disease with stage 5 chronic kidney disease or end stage renal disease; N18.6 End stage renal disease; Z99.2 Dependence on renal dialysis; R06.02 Shortness of breath; R53.1 Weakness; Z88.0 Allergy status to penicillin
CPT/HCPCS: 36415; 87015; 87116; 87206; 99285